=== PATIENT | female | born 1975 | race Hispanic/Latino ===

== ENCOUNTER 2016-10-17 05:36 | Day surgery (SDC) | payer OTHER ==
[~2016-10-17] VITALS: Ht 154.9 cm; Wt 80.3 kg
[~2016-10-17 05:36] MED LIST: CITALOPRAM HBR20 MG PO; DEPO-PROVER150 MG/ML IM; GABAPENTIN300 MG PO; METHOCARBAMOL750 MG PO; NOHOMEMEDS; PERCOCET 7.51 TABLET PO; PROPRANOLOL HCL60 M1 PO; ULTRACET1 TABLET PO; VYVANSE30 MG PO; ZANTAC150 MG PO
[2016-10-17 06:33] VITALS: BP 125/84
[2016-10-17] MEDS ORDERED: IBUPROFEN800 MG PO (08:55)
[2016-10-17] MEDS ORDERED: ENDOCET 5-3251 EACH PO (08:55)
[2016-10-17 11:07] VITALS: BP 102/55
[2016-10-17 12:00] VITALS: BP 98/68
[2016-10-17 13:19] VITALS: BP 108/77
== END 2016-10-17 13:44 | disposition home or self-care (01) ==
LOC: SDC 05:36
DX: N92.0 Excessive and frequent menstruation with regular cycle (principal); N80.0 Endometriosis of uterus; N83.8 Other noninflammatory disorders of ovary, fallopian tube and broad ligament; N73.6 Female pelvic peritoneal adhesions (postinfective); N32.89 Other specified disorders of bladder; I10 Essential (primary) hypertension; F17.200 Nicotine dependence, unspecified, uncomplicated; K21.9 Gastro-esophageal reflux disease without esophagitis
CPT/HCPCS: 88307; J0131; J0330; J1100; J1170; J1580; J1885; J2250; J2405; J2710; J2765; J3010; J7050

== ENCOUNTER 2016-11-09 13:27 | Emergency (ER) | payer OTHER ==
[~2016-11-09] VITALS: Ht 154.9 cm; Wt 80.0 kg
[~2016-11-09 13:27] MED LIST changes: +CIPRO500 MG PO; +ENDOCET 5-3251 EACH PO; +FLAGYL500 MG PO; +IBUPROFEN800 MG PO; +OXYCODONE-APAP1 EACH PO
[2016-11-09 14:51] LABS: ADD MIUA? YES; BILIRUBIN SMALL; BLOOD LARGE; COLOR DK YELLOW ((YELLOW)); GLUCOSE (STRIP) NEGATIVE; KETONES NEGATIVE; LEUKOCYTES TRACE; NITRITE NEGATIVE; PH, URINE 5.5 (5-8); PROTEIN (STRIP) >=300; SPECIFIC GRAVITY 1.035 (1.000-1.030); UROBILINOGEN 0.2 MG/DL (0.2-1.0)
[2016-11-09 15:16] LABS: MCH 22.8 PG (29.0-34.0); MCHC 30.3 G/DL (30.0-36.0); MCV 75.1 FL (83-99); RBC DIS.WIDTH-CV 15.7 % (11.8-14.6); RBC DIS.WIDTH-SD 41.6 % (39-53); RED BLOOD COUNT 4.13 M/uL (3.80-5.20)
[2016-11-09 15:25] LABS: CHLORIDE 110 mEq/L (99-109); POTASSIUM 4.1 mEq/L (3.7-5.4); SODIUM 139 mEq/L (136-147)
[2016-11-09 15:27] LABS: RED BLOOD CELLS 15-20 /HPF (0-5); WHITE BLOOD CELLS 0-5 /HPF (0-5)
[2016-11-09 15:27] LABS: GLUCOSE 108 mg/dL (70-99)
[2016-11-09 15:28] LABS: BACTERIA 1+ /HPF; CASTS NONE SEEN /LPF; CRYSTALS NONE SEEN; EPITHELIAL CELLS RARE /HPF; MUCUS 3+ /LPF; UCUL ADDED? NO
[2016-11-09 15:29] LABS: ANION GAP 7 MEQ/L (2-14); TOTAL BILIRUBIN 0.1 mg/dL (0.0-1.0)
[2016-11-09 15:31] LABS: ALKALINE PHOSPHATASE 221 IU/L (3-129); GFR ESTIMATE (CALCULATED) > 59 mL/min/
[2016-11-09 15:32] LABS: UREA NITROGEN (BUN) 16 mg/dL (9-23)
[2016-11-09 15:33] LABS: PLATELET COUNT 625 K/uL (156-360); WHITE BLOOD COUNT 14.2 K/uL (4.1-10.2)
[2016-11-09 16:02] LABS: BASOPHIL COUNT 0.1 K/uL (0-0.1); EOSINOPHIL (%) 1.4 % (0-5); EOSINOPHIL COUNT 0.2 K/uL (0-0.3); HEMATOLOGY COMMENT 1 SMEAR COMPATIBLE; IMMATURE GRANULOCYTE (%) 2.3 % (0.0-0.7); IMMATURE GRANULOCYTE COUNT 3.3 K/uL; LYMPHOCYTE COUNT 2.7 K/uL (1.0-2.8); MONOCYTE (%) 4.1 % (3-12); MONOCYTE COUNT 0.6 K/uL (0-0.8); NEUTROPHIL (%) 72.6 % (45-76); NEUTROPHIL COUNT 10.3 K/uL (1.8-6.4); USER ID NJV
[2016-11-09] MEDS ORDERED: MACROBID100 MG PO (17:51)
[2016-11-09] MEDS ORDERED: PYRIDIUM200 MG PO (17:52)
[2016-11-09 18:16] VITALS: BP 102/63
[2016-11-10] MEDS ORDERED: OXYCODONE-APAP1 EACH PO (10:23)
[2016-11-10] MEDS ORDERED: IBUPROFEN800 MG PO (10:23)
== END 2016-11-09 18:17 | disposition home or self-care (01) ==
LOC: EME 13:27
PROVIDERS: Emergency Medicine
DX: N39.0 Urinary tract infection, site not specified (principal); N73.9 Female pelvic inflammatory disease, unspecified; Z90.711 Acquired absence of uterus with remaining cervical stump; Z88.0 Allergy status to penicillin
CPT/HCPCS: 80053; 81003; 85025; 87040; 99281; 99284; J1885; J2270; J2405; J7030

== ENCOUNTER 2016-11-10 06:39 | Day surgery (SDC) | payer OTHER ==
[~2016-11-10] VITALS: Ht 154.9 cm; Wt 80.3 kg
[~2016-11-10 06:39] MED LIST changes: +MACROBID100 MG PO; +PYRIDIUM200 MG PO
[2016-11-10 07:54] VITALS: BP 133/77
[2016-11-10] MEDS ORDERED: OXYCODONE-APAP1 EACH PO (10:23)
[2016-11-10] MEDS ORDERED: IBUPROFEN800 MG PO (10:23)
[2016-11-10 11:20] VITALS: BP 125/90
[2016-11-10 12:57] VITALS: BP 116/83
== END 2016-11-10 13:00 | disposition home or self-care (01) ==
LOC: SDC
PROC: 0W9G40Z Drainage of Peritoneal Cavity with Drainage Device, Percutaneous Endoscopic Approach (ICD-10-PCS; principal; 2016-11-10)
DX: K65.1 Peritoneal abscess (principal); Q85.9 Phakomatosis, unspecified; F17.200 Nicotine dependence, unspecified, uncomplicated; K21.9 Gastro-esophageal reflux disease without esophagitis
CPT/HCPCS: 85027; 87070; 87075; 87205; J0330; J1100; J1170; J1580; J2250; J2405; J3010; J7050

== ENCOUNTER 2017-11-23 16:04 | Emergency (ER) | payer OTHER ==
[~2017-11-23] VITALS: Ht 154.9 cm; Wt 80.4 kg
[2017-11-23] MEDS ORDERED: VALIUM5 MG PO (17:51)
[2017-11-23] MEDS ORDERED: NAPROXEN500 MG PO (17:51)
[2017-11-23] MEDS ORDERED: TORADOL10 MG PO (18:28)
[2017-11-23] MEDS ORDERED: REGLAN10 MG PO (18:28)
[2017-11-23] MEDS ORDERED: VALIUM2 MG PO (18:28)
[2017-11-23 18:52] VITALS: BP 166/112
== END 2017-11-23 18:53 | disposition home or self-care (01) ==
LOC: EME 16:04
DX: S09.90XA Unspecified injury of head, initial encounter (principal); M62.838 Other muscle spasm; W22.03XA Walked into furniture, initial encounter; I10 Essential (primary) hypertension; F32.9 Major depressive disorder, single episode, unspecified; F41.9 Anxiety disorder, unspecified; F17.200 Nicotine dependence, unspecified, uncomplicated
CPT/HCPCS: 70450; 99281; 99284; J1885